=== PATIENT | male | born 1950 | race Caucasian/White ===

== ENCOUNTER 2024-09-29 08:53 | Emergency (ER) | payer MEDICARE, BC, SELFPAY ==
[2024-09-29 09:00] VITALS: BP 125/76; PULSE 87; RESP 21; TEMP 36.7; O2SAT 94; BMI 41.3
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
== END 2024-09-29 10:08 | disposition home or self-care (01) ==
PROVIDERS: Emergency Provider Emergency Medicine; PCP Internal Medicine
DX: T24.131A Burn of first degree of right lower leg, initial encounter (principal); W86.8XXA Exposure to other electric current, initial encounter; I10 Essential (primary) hypertension; E78.5 Hyperlipidemia, unspecified; E11.9 Type 2 diabetes mellitus without complications
CPT/HCPCS: 99282